=== PATIENT | female | born 1985 | race Caucasian/White ===

== ENCOUNTER 2020-10-17 07:18 | Emergency (ER) | payer OTHER ==
[~2020-10-17] VITALS: Ht 175.3 cm; Wt 70.3 kg
[2020-10-17 07:36] VITALS: BP 134/85
[2020-10-17] MEDS ORDERED: ZOLOFT25 MG PO (07:44)
[2020-10-17] MEDS ORDERED: XANAX 0.5 MG0.5 MG PO (08:02)
== END 2020-10-17 08:38 | disposition home or self-care (01) ==
LOC: M.ERS 07:18
DX: F41.9 Anxiety disorder, unspecified (principal); Z90.89 Acquired absence of other organs; Z79.899 Other long term (current) drug therapy